=== PATIENT | male | born 1980 | race Caucasian/White ===

== ENCOUNTER 2020-09-30 07:33 | Emergency (ER) | payer BC ==
[2020-09-30 08:09] VITALS: BP 142/103
[2020-09-30] MEDS ORDERED: MORPHINE SULFATE 10 MG/ML INJ IV ONE (09:08)
[2020-09-30] MEDS ORDERED: METHYLPREDNISOLONE INJ 125 MG/2 ML SDV IV ONE (09:08)
[2020-09-30] MEDS ORDERED: KETOROLAC TROMETHAMINE INJ/PF 30 MG/1 ML SDV IV ONE (09:08)
--- NOTE | 2020-09-30 09:14 | ER Document Report ---
HPI - HPI Time Seen by Provider: 09/30/20 08:55 Pain Level: 4 Context: Patient is a 39-year-old male who comes to the emergency department for chief complaint of lower back pain which is worse on the left. Patient states that 2 days ago he was working on a rocking chair and afterwards he started feeling discomfort, he states the discomfort has significantly worsened over the past 2 days and last night he could not get comfortable or sleep. He states he started having sharp severe pain in his back as well which feels like a spasm. He denies focal numbness or weakness, incontinence, and he is able to urinate without difficulty. He denies fever, specific trauma to the back, history of IV drug abuse. He has a past medical history of hypertension. He states he herniated disc within the past year, was referred to spinal specialty, had physical therapy, has not had a problem since. He states symptoms are very similar to the previous herniated disc. He states he has been trying Flexeril without any relief. Past Medical History - General Information source: Patient - Social History Smoking Status: Never Smoker Chew tobacco use (# tins/day): No Frequency of alcohol use: Occasional Drug Abuse: None Lives with: Family Family History: Reviewed & Not Pertinent - Past Medical History Cardiac Medical History: Reports: Hx Hypertension GI Medical History: Reports: Hx Gastroesophageal Reflux Disease Surgical Hx: Negative - Immunizations Immunizations up to date: Yes Hx Diphtheria, Pertussis, Tetanus Vaccination: Yes Vertical Provider Document - CONSTITUTIONAL General Appearance: WD/WN - Patient is obvious pain with position changes and movement but at rest does not appear to be in pain, No Apparent Distress - INFECTION CONTROL TRAVEL OUTSIDE OF THE [place] IN LAST 30 DAYS: No - HEENT HEENT: Atraumatic, Normocephalic - NECK Neck: Normal Inspection - RESPIRATORY Respiratory: Breath Sounds Normal, No Respiratory Distress, Chest Non-Tender - CARDIOVASCULAR Cardiovascular: Regular Rate, Regular Rhythm. negative: Tachycardia - GI/ABDOMEN Gastrointestinal: Abdomen Soft, Abdomen Non-Tender. negative: Abdomen Tender - BACK Back: negative: Normal Inspection - There is no midline tenderness of the spine. No signs of trauma. There is tenderness along the paralumbar musculature especially on the left. No saddle anesthesia. Normal upper and lower extremity range of motion, normal strength, normal distal neurovascular exam. - MUSCULOSKELETAL/EXTREMETIES Musculoskeletal/Extremeties: MAEW, FROM, Non-Tender - NEURO Level of Consciousness: Awake, Alert, Appropriate Motor/Sensory: No Motor Deficit, No Sensory Deficit - DERM Integumentary: Warm, Dry, No Rash Course - Re-evaluation Re-evalutation: Patient with obvious discomfort with position changes, positive straight leg raise, no midline tenderness, no trauma, no fever. No reported risk factors, history very suggestive of herniated disc along with his exam. Low suspicion of spinal cord impingement, severe injury, concerning infection. Normal distal neurovascular exam. Discussed expectations, treatment, patient already has established care with spinal specialty and [facility], discussed follow-up and return cautions. Patient states understanding and agreement. Patient is able to ambulate. Stable at time of discharge. - Vital Signs Vital signs: Temp Pulse Resp BP Pulse Ox 99.6 F 110 H 22 H 142/103 H 100 09/30/20 07:59 09/30/20 07:59 09/30/20 07:59 09/30/20 07:59 09/30/20 07:59 - Laboratory Results Critical Laboratory Results Reviewed: No Critical Results - Radiology Results Critical Radiology Results Reviewed: No Critical Results Discharge - Discharge Clinical Impression: Lower back pain Qualifiers: Chronicity: acute Back pain laterality: bilateral Sciatica presence: with sciatica Sciatica laterality: sciatica of left side Qualified Code(s): M54.42 - Lumbago with sciatica, left side Condition: Stable Disposition: HOME, SELF-CARE Additional Instructions: Your evaluation is most consistent with a herniated disc causing pain to nerves and muscle spasms in your back. This can heal with time. You have been prescribed prednisone for the inflammation, I recommend the diazepam using precautions, you can also apply heat to the area. Avoid lifting or twisting. Symptoms should gradually resolve. Follow-up closely with your spinal specialist for additional monitoring and management, especially if your current symptoms continue. Return if you worsen including developing numbness, inability to control your bowel or bladder, fever, or any other concerning or worsening symptoms. Prescriptions: Prednisone [Deltasone 10 mg Tablet] 10 mg PO ASDIR PRN #21 tablet PRN Reason: Diazepam [Valium 5 mg Tablet] 1 - 2 tab PO TID PRN #15 tablet PRN Reason: Forms: Return to Work
== END 2020-09-30 09:50 | disposition home or self-care (01) ==
LOC: ER 07:33
DX: M54.42 Lumbago with sciatica, left side (principal); I10 Essential (primary) hypertension
CPT/HCPCS: 99284; 96374; 96375; J2930; J1885; J2270